=== PATIENT | female | born 1985 | race African-American/Black ===

== ENCOUNTER 2018-01-01 23:16 | Inpatient (IN) | payer MEDICAID ==
[2018-01-02 01:41] LABS: ADD UMIC NO; UR ASCORBIC ACID NEGATIVE (NEGATIVE); UR BILIRUBIN (Dip) NEGATIVE (NEGATIVE); UR BLOOD (Dip) NEGATIVE (NEGATIVE); UR CLARITY SLIGHTLY CLOUDY (CLEAR); UR COLOR YELLOW (YELLOW); UR GLUCOSE (Dip) NEGATIVE (NEGATIVE); UR KETONES (Dip) NEGATIVE (NEGATIVE); UR LEUKOCYTE ESTERASE (Dip) NEGATIVE Leu/ul (NEGATIVE); UR NITRITE (Dip) NEGATIVE (NEGATIVE); UR RBC 3 /HPF (0-5); UR SPECIFIC GRAVITY (Dip) 1.017 (1.003-1.030); UR SQUAMOUS EPITHELIAL CELL FEW /HPF (FEW); UR TOTAL PROTEIN (Dip) NEGATIVE (NEGATIVE); UR UROBILINOGEN (Dip) NEGATIVE (NEGATIVE); UR WBC 2 /HPF (0-5)
[2018-01-02] MEDS: LACTATED RINGER'S 1,000 ML IV (02:28)
[2018-01-02] MEDS: TERBUTALINE 1 MG/ML INJ SC ×2 (03:25→05:35)
[2018-01-02] MEDS: BETAMET NA PHOS/AC(6 MG/ML) 5ML INJ IM (03:27)
[2018-01-02] MEDS ORDERED: ONDANSETRON 4 MG INJ (11:44)
[2018-01-02] MEDS ORDERED: ONDANSETRON 4 MG INJ IV (12:00)
[2018-01-02] MEDS: FERROUS SULFATE (EC) 325 MG TAB PO (21:00)
[2018-01-02] MEDS: PRENATAL VITAMIN PO (21:00)
[2018-01-03] MEDS: LACTATED RINGER'S 1,000 ML IV ×2 (03:15→05:20)
[2018-01-03] MEDS: BETAMET NA PHOS/AC(6 MG/ML) 5ML INJ IM (04:02)
[2018-01-03] MEDS: PRENATAL VITAMIN PO (09:03)
[2018-01-03] MEDS: FERROUS SULFATE (EC) 325 MG TAB PO (09:03)
== END 2018-01-03 15:40 | disposition home or self-care (01) | DRG 780 ==
LOC: OBT 23:16 → L-D 01-02 07:53
DX: O47.02 False labor before 37 completed weeks of gestation, second trimester (principal); O30.002 Twin pregnancy, unspecified number of placenta and unspecified number of amniotic sacs, second trimester; Z3A.24 24 weeks gestation of pregnancy
CPT/HCPCS: 36415; 76815; 76817; 81001; 81003; 82731; 87086; 96360; 96361; 96372